=== PATIENT | male | born 1990 | race Caucasian/White ===

== ENCOUNTER 2018-03-03 16:50 | Inpatient (IN) ==
--- NOTE | 2018-03-03 18:59 | ED ---
HPI General Chief Complaint: Psychiatric Symptoms Stated Complaint: poss allergic reaction to a new medication Time Seen by Provider: 03/03/18 18:57 Source: patient Mode of arrival: ambulatory Limitations: no limitations History of Present Illness HPI Narrative: Patient is a 27-year-old male here today that was just discharged from [facility]. He states he was therefore suicidal ideation and management of his psychiatric medications, he is reports that they stopped his Geodon yesterday and switched him to Latuda which subsequently caused him some lesions on his tongue which are very painful. He still reports suicidal ideations with a plan to cut himself. He reports that he uses meth almost daily but has not used in several days due to being admitted to [facility]. He is somewhat agitated and moving around bed, but he is awake alert oriented. He denies homicidal ideation. Denies any chest pain shortness of breath, jaw pain, L arm pain etc. History positive for anxiety, depression, abscesses, methamphetamine abuse, schizophrenia. MD complaint: Reports suicidal ideation and feels depressed Onset (ago): week(s) Duration: constant History of same: Yes Relieving factors: none Exacerbating factors: drug use Context: Reports new medication(s) (Stopped Geodon, started Latuda) Associated psychiatric symptoms: Reports depression, suicidal ideation and racing thoughts; Denies homicidal ideation, auditory hallucinations, visual hallucinations and delusions Related Data Home Medications Medication Instructions Recorded Confirmed buspirone 15 mg PO TID 03/03/18 03/03/18 clonidine HCl 0.2 mg PO TID 03/03/18 03/03/18 hydroxyzine pamoate [Vistaril] 10 mg PO TID 03/03/18 03/03/18 lamotrigine [Lamictal] 20 mg PO DAILY 03/03/18 03/03/18 Allergies Allergy/AdvReac Type Severity Reaction Status Date / Time coconut Allergy Severe Vomiting Unverified 02/22/18 00:02 aspirin AdvReac Vomiting Verified 02/22/18 00:02 latex AdvReac Rash Verified 02/22/18 00:02 Review of Systems ROS: all other systems reviewed are negative [facility] Social History Social History Substance History: Active Abuse Second Hand Smoke Exposure: No Smoking Status: Never smoker Tobacco Type: Cigarettes How Often Do You Have a Drink Containing Alcohol: Never Recent Travel in [facility] within the Last 8 Weeks: No Recent Out of Country Travel within the Last 8 Weeks: No Exam Narrative Exam Narrative: GENERAL: Pt awake, alert, oriented.He is very anxious and moving around in bed. SKIN: Focused skin assessment warm/dry. HEAD: Atraumatic. Normocephalic. EYES: Pupils equal and round. No scleral icterus. No injection or drainage. ENT: No nasal bleeding or discharge. Mucous membranes pink and moist. NECK: Trachea midline. No JVD. CARDIOVASCULAR: Regular rate and rhythm. No murmur appreciated. RESPIRATORY: No accessory muscle use. Clear to auscultation. Breath sounds equal bilaterally. GASTROINTESTINAL: Abdomen soft, non-tender, nondistended. Hepatic and splenic margins not palpable. MUSCULOSKELETAL: No obvious deformities. No clubbing. No cyanosis. No edema. NEUROLOGICAL: Awake and alert. No obvious cranial nerve deficits. Motor grossly within normal limits. Normal speech. PSYCHIATRIC: Appropriate mood and affect; insight and judgment normal. Course Initial Documented Vital Signs Temperature 98.5 F 03/03/18 17:10 Pulse Rate 105 H 03/03/18 17:10 Respiratory Rate 16 03/03/18 17:10 Blood Pressure 141/93 H 03/03/18 17:10 Pulse Oximetry 91 L 03/03/18 17:10 Last Documented Vital Signs Temperature 98.5 F 03/03/18 17:10 Pulse Rate 74 03/04/18 05:00 Respiratory Rate 16 03/04/18 05:00 Blood Pressure 141/93 H 03/03/18 17:10 Pulse Oximetry 95 03/04/18 05:00 Medical Decision Making [facility] Narrative Medical decision making narrative: Medical decision making narrative: During the course of the patients emergency department visit, the patients history, examination, and differential diagnosis were reviewed with the patient. He reports that he was at [facility] for medication adjustment to his psych meds developed blisters to his tongue possibly caused by Latuda. He asked to be transferred here for evaluation for the blisters on his tongue however they discharged him. He is reporting suicidal ideation with a plan to cut himself he denies homicidal ideation. The patient was initially provided Ativan IV x 2 doses, psych eval, routine labwork with uds. The patients laboratory studies were reviewed and remarkable for Mild elevations of WBC's. The rest were significantly delayed due to need for recollection. Signed patient out to Dr. Howell at 2250. Patient has hypokalemia and hypocalcemia. Potassium and calcium replaced. 12: 49 AM. Patient is medically clear for psychiatric evaluation and disposition. Medical Screen Exam Complete: Yes Emergency Medical Condition: Yes Medical Screen Exam Complete: Yes Emergency Medical Condition: Yes Differential Diagnosis Differential Diagnosis: Suicidal ideation, schizophrenia, drug reaction (latuda ) Lab Data Lab results reviewed: Yes I reviewed the patient's lab results. Result diagrams: 03/03/18 19:20 03/04/18 06:20 Lab Results 03/03/18 03/03/18 03/04/18 Range/Units 19:20 22:35 06:00 WBC 11.2 H (4.0-11.0) th/mm3 RBC 4.87 (4.50-5.90) mil/mm3 Hgb 13.8 (13.0-17.0) gm/dL Hct 42.5 (39.0-51.0) % MCV 87.2 (80.0-100.0) fL MCH 28.4 (27.0-34.0) pg MCHC 32.6 (32.0-36.0) % RDW 13.6 (11.6-17.2) % Plt Count 250 (150-450) th/mm3 MPV 8.2 (7.0-11.0) fL Neut % (Auto) 66.3 (16.0-70.0) % Lymph % (Auto) 24.6 (9.0-44.0) % [place] % (Auto) 8.1 H (0.0-8.0) % Eos % (Auto) 0.8 (0.0-4.0) % Baso % (Auto) 0.2 (0.0-2.0) % Neut # (Auto) 7.4 (1.8-7.7) th/mm3 Lymph # (Auto) 2.8 (1.0-4.8) th/mm3 [place] # (Auto) 0.9 (0.0-0.9) th/mm3 Eos # (Auto) 0.1 (0.0-0.4) th/mm3 Baso # (Auto) 0.0 (0.0-0.2) th/mm3 WBC Differential . Differential Comment Auto diff final Sodium 142 (136-145) meq/L Potassium 2.9 L* (3.5-5.1) meq/L Chloride 114 H (98-107) meq/L Carbon Dioxide 23.7 (21.0-32.0) meq/L Anion Gap 4 L (5-15) meq/L BUN 11 (7-18) mg/dL Creatinine 0.65 (0.60-1.30) mg/dL Estimated GFR Greater than 89 (>89) mL/min Random Glucose 84 (74-106) mg/dL Calcium 6.2 L* (8.5-10.1) mg/dL Prot Corrected Calcium 5.9 L* (8.5-10.1) mg/dL Magnesium 1.7 (1.5-2.5) mg/dL Total Bilirubin 0.6 (0.2-1.0) mg/dL AST 22 (15-37) U/L ALT 24 (12-78) U/L Alkaline Phosphatase 37 L (45-117) U/L Total Protein 8.1 (6.4-8.2) g/dL Albumin 2.7 L (3.4-5.0) g/dL TSH 1.040 (0.358-3.740) uIU/mL Urine Color (Yellw/Straw) Urine Clarity (Clear) Urine pH (5.0-8.5) Ur Specific [place] (1.002-1.035) Urine Protein (Neg-Trace) mg/dL Urine Glucose (UA) (Negative) mg/dL Urine Ketones (Negative) mg/dL Urine Occult Blood (Negative) Urine Nitrate (Negative) Urine Bilirubin (Negative) Urine Urobilinogen (Less than 2) mg/dL Ur Leukocyte Esterase (Negative) Urine RBC (0-3) /hpf Urine Bacteria (None) /hpf Urine Mucus (Occasional) /lpf Micro UA Comment Ur Microscopic Review Urine Culture Comments Urine Opiates Screen Neg (Neg) Ur Barbiturates Screen Neg (Neg) Ur Amphetamines Screen Pos H (Neg) U Benzodiazepines Scrn Neg (Neg) Urine Cocaine Screen Neg (Neg) U Cannabinoids Screen Pos H (Neg) Serum Alcohol Less than 3 (0-5) mg/dL 03/04/18 03/04/18 Range/Units 06:00 06:20 WBC (4.0-11.0) th/mm3 RBC (4.50-5.90) mil/mm3 Hgb (13.0-17.0) gm/dL Hct (39.0-51.0) % MCV (80.0-100.0) fL MCH (27.0-34.0) pg MCHC (32.0-36.0) % RDW (11.6-17.2) % Plt Count (150-450) th/mm3 MPV (7.0-11.0) fL Neut % (Auto) (16.0-70.0) % Lymph % (Auto) (9.0-44.0) % [place] % (Auto) (0.0-8.0) % Eos % (Auto) (0.0-4.0) % Baso % (Auto) (0.0-2.0) % Neut # (Auto) (1.8-7.7) th/mm3 Lymph # (Auto) (1.0-4.8) th/mm3 [place] # (Auto) (0.0-0.9) th/mm3 Eos # (Auto) (0.0-0.4) th/mm3 Baso # (Auto) (0.0-0.2) th/mm3 WBC Differential Differential Comment Sodium 137 (136-145) meq/L Potassium 4.1 D (3.5-5.1) meq/L Chloride 107 (98-107) meq/L Carbon Dioxide 25.8 (21.0-32.0) meq/L Anion Gap 4 L (5-15) meq/L BUN 12 (7-18) mg/dL Creatinine 0.96 (0.60-1.30) mg/dL Estimated GFR Greater than 89 (>89) mL/min Random Glucose 87 (74-106) mg/dL Calcium 8.3 L D (8.5-10.1) mg/dL Prot Corrected Calcium (8.5-10.1) mg/dL Magnesium (1.5-2.5) mg/dL Total Bilirubin (0.2-1.0) mg/dL AST (15-37) U/L ALT (12-78) U/L Alkaline Phosphatase (45-117) U/L Total Protein (6.4-8.2) g/dL Albumin (3.4-5.0) g/dL TSH (0.358-3.740) uIU/mL Urine Color Yellow (Yellw/Straw) Urine Clarity Clear (Clear) Urine pH 5.0 (5.0-8.5) Ur Specific [place] 1.029 (1.002-1.035) Urine Protein 30 H (Neg-Trace) mg/dL Urine Glucose (UA) Negative (Negative) mg/dL Urine Ketones Negative (Negative) mg/dL Urine Occult Blood Negative (Negative) Urine Nitrate Negative (Negative) Urine Bilirubin Negative (Negative) Urine Urobilinogen Less than 2 (Less than 2) mg/dL Ur Leukocyte Esterase Negative (Negative) Urine RBC Less than 1 (0-3) /hpf Urine Bacteria Rare H (None) /hpf Urine Mucus Few H (Occasional) /lpf Micro UA Comment Culture not ind Ur Microscopic Review Not Reportable Urine Culture Comments Culture not ind Urine Opiates Screen (Neg) Ur Barbiturates Screen (Neg) Ur Amphetamines Screen (Neg) U Benzodiazepines Scrn (Neg) Urine Cocaine Screen (Neg) U Cannabinoids Screen (Neg) Serum Alcohol (0-5) mg/dL Discharge Plan Discharge Disposition Patient Disposition: 30 Still Patient Discharge Details Diagnosis: Suicidal ideation, Acute hypokalemia, Hypocalcemia Physicians Team ED Provider: Juvenal Howell ED Midlevel Provider: Trisha Fox Primary Care Provider: Primary Care Kera Yanez Rxs /Orders / Referrals /Forms Prescriptions: No Action lamotrigine [Lamictal] 25 mg Tablet 20 mg PO DAILY RF: 0 clonidine HCl 0.2 mg Tablet 0.2 mg PO TID RF: 0 buspirone 15 mg Tablet 15 mg PO TID RF: 0 hydroxyzine pamoate [Vistaril] 25 mg Capsule 10 mg PO TID RF: 0 Status ED Status: Medically Cleared
[2018-03-03] MEDS ORDERED: Acetaminophen 500 MG Tablet PO ONE (19:50)
[2018-03-03 20:02] LABS: Baso % (Auto) 0.2 % (0.0-2.0); Eos # (Auto) 0.1 th/mm3 (0.0-0.4); Eos % (Auto) 0.8 % (0.0-4.0); Hematocrit 42.5 % (39.0-51.0); Hemoglobin 13.8 gm/dL (13.0-17.0); Lymph # (Auto) 2.8 th/mm3 (1.0-4.8); Lymph % (Auto) 24.6 % (9.0-44.0); Mean Corpuscular HGB Conc 32.6 % (32.0-36.0); Mean Corpuscular Hemoglobin 28.4 pg (27.0-34.0); Mean Corpuscular Volume 87.2 fL (80.0-100.0); Mean Platelet Volume 8.2 fL (7.0-11.0); Mono # (Auto) 0.9 th/mm3 (0.0-0.9); Mono % (Auto) 8.1 % (0.0-8.0); Neut # (Auto) 7.4 th/mm3 (1.8-7.7); Neut % (Auto) 66.3 % (16.0-70.0); Platelet Count 250 th/mm3 (150-450); Red Blood Count 4.87 mil/mm3 (4.50-5.90); Red Cell Distribution Width 13.6 % (11.6-17.2); White Blood Count 11.2 th/mm3 (4.0-11.0)
[2018-03-03 20:33] LABS: Alkaline Phosphatase 37 U/L (45-117); Total Protein 8.1 g/dL (6.4-8.2)
[2018-03-03 23:13] LABS: Alanine Aminotransferase 24 U/L (12-78); Albumin 2.7 g/dL (3.4-5.0); Anion Gap 4 meq/L (5-15); Aspartate Aminotransferase 22 U/L (15-37); Blood Urea Nitrogen 11 mg/dL (7-18); Calcium 6.2 mg/dL (8.5-10.1); Carbon Dioxide 23.7 meq/L (21.0-32.0); Chloride 114 meq/L (98-107); Glomerular Filtration Rate Greater Than 89 mL/min (>89); Glucose,Random 84 mg/dL (74-106); Magnesium 1.7 mg/dL (1.5-2.5); Sodium 142 meq/L (136-145)
[2018-03-03 23:22] LABS: Potassium 2.9 meq/L (3.5-5.1)
[2018-03-03] MEDS ORDERED: Calcium Gluconate Inj 1 GM in Dextrose 5% in Water Inj 100 ML IV.SIG ONE ×2 (23:54)
[2018-03-03] MEDS ORDERED: Potassium Chlor 20 mEq Premix 20 MEQ/100 ML PIGGYBACK IV.SIG ONE (23:54)
[2018-03-04 06:23] LABS: Bacteria,Urine Rare /hpf; Bilirubin,Urine Negative (Negative); Clarity,Urine Clear (Clear); Color,Urine Yellow (Yellw/Straw); Glucose,Urine (UA) Negative (Negative); Leukocyte Esterase,Urine Negative (Negative); Mucus,Urine Few /lpf (Occasional); Nitrite,Urine Negative (Negative); Specific Gravity,Urine 1.029 (1.002-1.035)
[2018-03-04 06:27] LABS: Amphetamine Screen,Urine Pos (Neg); Barbiturate Screen,Urine Neg (Neg); Cannabinoid Screen,Urine Pos (Neg); Cocaine Screen,Urine Neg (Neg)
[2018-03-04 06:28] LABS: Opiate Screen,Urine Neg (Neg)
[2018-03-04 07:14] LABS: Anion Gap 4 meq/L (5-15); Blood Urea Nitrogen 12 mg/dL (7-18); Calcium 8.3 mg/dL (8.5-10.1); Carbon Dioxide 25.8 meq/L (21.0-32.0); Chloride 107 meq/L (98-107); Glomerular Filtration Rate Greater Than 89 mL/min (>89); Glucose,Random 87 mg/dL (74-106); Potassium 4.1 meq/L (3.5-5.1); Sodium 137 meq/L (136-145)
[2018-03-04] MEDS ORDERED: Aluminum/Magnesium/Simethacone Susp 30 ML UDC PO PRN (12:02)
[2018-03-04] MEDS ORDERED: Acetaminophen 325 MG Tablet PO PRN (12:02)
[2018-03-04] MEDS ORDERED: lamoTRIgine 25 MG TABLET PO SCH ×2 (12:30→13:07)
[2018-03-04] MEDS ORDERED: BUSPIRONE 15 MG PO SCH (13:00)
--- NOTE | 2018-03-04 13:26 | P.CONPSY ---
Provisional Diagnosis Admission Date: March 04, 2018 12:08 [place] I.: Bipolar disorder-current episode depressed with suicidal ideation History of Present Illness Primary Care Provider: No Primary Care Physician History of Present Illness: This is a 27 year-old single, male who presented voluntarily for suicidal ideation after being discharged from [facility] yesterday. He is known to this facility and department. Reviewed electronic medical record, labs, and discussed case with staff. Patient was evaluated in his room in [facility]. His speech is clear, logical, organized, of normal canes and volume. He endorses suicidal ideation and states that he would "slit my wrists, take all my medications, and drink a whole bottle of whiskey". He denies homicidal ideation. Although when asked about the auditory hallucinations he states "I do not know, sometimes I think I might hear pseudo-auditory hallucinations". When asked to elaborate he states that sometimes he hears conversations at some far away and then he believes they are talking about him. He does not appear to be exhibiting any psychotic or manic symptoms at this time. He reports that he was discharged yesterday from [facility] after being admitted since Sunday. He reports that he follows up with them on a regular basis. He states he was originally admitted that he wanted to go off of his Geodon due to to gaining weight. He states that they started him on Latuda however it caused blisters on his tongue and he stopped. He claims that he told the nurses at [facility] this and that he also told them he was still suicidal but they discharged him anyway. The patient initially Saying Abilify however, he had samples of Latuda and his belongings and when I took them to him he did corroborate this was the medication was given. Patient reports that he has had previous suicidal attempt stating that it the age of 12 he "slit my wrists". He reports that he lives with his mother and is currently unemployed. States that he completed 2 years of college. Denies owning firearms. Denies a familial history of mental illness. He actually states "nothing that has been diagnosed but if you met him you could tell it was there". He is reporting that he like to get back on his Geodon is that is what has worked previously for him. Review of Systems All other systems reviewed negative except as stated in HPI PMF - History History Provided By: Patient - Medical History Medical History: Medical History (Last Reviewed 02/22/18 @ 00:03 by Lesvia Vasquez) Patient denies medical problems - Surgical History Surgical History: Surgical History (Last Reviewed 02/22/18 @ 00:42 by CHRISTEN Mckeon) Hx of cholecystectomy - Tobacco History Second Hand Smoke Exposure: No Smoking Status: Never smoker Tobacco Type: Cigarettes - Alcohol History How Often Do You Have a Drink Containing Alcohol: Never - Substance Use History Substance History: Active Abuse - Substance Use Type Methamphetamine Status: Active Route Used: Inhalation Alcohol Status: Active - Travel History Recent Travel in the [facility] Within the Last 8 Weeks: No Recent Travel Out of the Country Within the Last 8 Weeks: No - Immunization History Tetanus Immunization: >5 Years Medications and Allergies Active Medications: Active Medications Acetaminophen (Tylenol) 650 mg PO Q4H PRN PRN Reason: Pain 1-5 or Temp >101F Al Hydrox/Mg Hydrox/Simethicone (Mag-Al Plus Susp Liq) 30 ml PO Q6H PRN PRN Reason: DYSPEPSIA Clonidine HCl (Catapres) 0.2 mg PO TID [facility] Last Admin: 03/04/18 13:19 Dose: 0.2 mg Hydroxyzine Pamoate (Vistaril) 100 mg PO TID [facility] Last Admin: 03/04/18 13:19 Dose: 100 mg Lamotrigine (Lamictal) 25 mg PO DAILY [facility] Lamotrigine (Lamictal) 25 mg PO ONCE ONE Stop: 03/04/18 14:31 Lidocaine HCl (Xylocaine 2% Viscous) 15 ml SWISH-SPIT Q4H PRN PRN Reason: PAIN SCALE 4 TO 6 MODERATE Last Admin: 03/03/18 20:25 Dose: 15 ml Non-Formulary Medication (Buspirone [Buspirone]) 15 mg PO TID [facility] Senna/Docusate Sodium (Vicky-Colace) 1 tab PO BID [facility] Sennosides (Senokot) 17.2 mg PO Q12H PRN PRN Reason: Moderate Constipation Ziprasidone (Geodon) 160 mg PO [facility] Allergies Allergy/AdvReac Type Severity Reaction Status Date / Time coconut Allergy Severe Vomiting Unverified 03/04/18 12:56 aspirin AdvReac Vomiting Verified 03/04/18 12:56 latex AdvReac Rash Verified 03/04/18 12:56 Home Medications Medication Instructions Recorded Confirmed Type buspirone 15 mg PO TID 03/03/18 03/03/18 History clonidine HCl 0.2 mg PO TID 03/03/18 03/03/18 History hydroxyzine pamoate [Vistaril] 10 mg PO TID 03/03/18 03/03/18 History lamotrigine [Lamictal] 20 mg PO DAILY 03/03/18 03/03/18 History Exam Vital signs: Vital Signs 03/03/18 17:10 03/03/18 23:00 03/04/18 05:00 Temperature 98.5 F Pulse Rate 105 H 91 H 74 Respiratory Rate 16 16 16 Blood Pressure 141/93 H Pulse Oximetry 91 L 96 95 Intake & Output 03/03/18 03/04/18 03/04/18 18:59 06:59 18:59 Intake Total 210 / 210 Balance 210 / 210 Weight 198 lb Intake: IV 210 / 210 Calcium Gluconate Inj 1 GM In 110 / 110 D5W Inj 100 ML @ 110 mls/hr IV. SIG ONCE ONE Rx#:[id number] KCl 20 mEq Premix Inj 20 meq In 100 / 100 100 ml @ 50 mls/hr IV.SIG ONCE ONE Rx#:[id number] - Constitutional no acute distress - Routine HEENT Exam Head: Present: normocephalic, atraumatic - Routine Neurological Exam Present: alert, oriented X3 - Routine Psychiatric Exam Present: suicidal ideation, cooperative, depressed Mental Status Examination Appearance: Appropriate Consciousness: Alert Orientation: x4 Motor Activity: Normal gait Speech: Unremarkable Language: Adequate Fund of Knowledge: Adequate Attention and Concentration: Adequate Memory: Unremarkable Mood: Sad Affect: Sad Thought Process & Associations: Intact, Logical Thought Content: Appropriate Hallucination Type: None Delusion Type: None Suicidal Ideation: No Suicidal Plan: No Suicidal Intention: No Homicidal Ideation: No Homicidal Plan: No Homicidal Intention: No Insight: Fair Judgment: Impulsive Assessment and Plan - Assessment (1) Bipolar disorder current episode depressed Code(s): F31.30 - Bipolar disorder, current episode depressed, mild or moderate severity, unspecified Status: Acute - Plan Plan: Estimated LOS: [7] days patient has been admitted to a locked inpatient psychiatric unit for further evaluation and treatment as deemed necessary. Justification for Continued Inpatient Stay: Moving this patient to a less restrictive environment would likely result in decompensation.
[2018-03-04] MEDS ORDERED: lamoTRIgine 25 MG TABLET PO ONE (14:30)
[2018-03-04] MEDS: Senna/Docusate Sodium 8.6/50 MG Tablet PO SCH (23:45)
[2018-03-05 08:26] LABS: Calcium 8.6 mg/dL (8.5-10.1); Carbon Dioxide 27.6 meq/L (21.0-32.0); Potassium 3.8 meq/L (3.5-5.1)
[2018-03-05 08:30] LABS: Chol/HDL Ratio 5.12 Ratio; HDL Cholesterol 28.1 mg/dL (40.0-60.0)
[2018-03-05] MEDS: Senna/Docusate Sodium 8.6/50 MG Tablet PO SCH ×2 (08:38→21:03)
[2018-03-05 10:54] LABS: Hemoglobin A1c 5.4 % (4.3-6.0)
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
--- NOTE | 2018-03-05 15:28 | ECG ---
Date Performed: 03/05/2018 Time Performed: 10:38:48 PTAGE: 27 years EKG: SINUS BRADYCARDIA BORDERLINE ECG PREVIOUS TRACING : 06/18/2002 03.18 Since the previous tracing, no significant change noted DOCTOR: Mecca Napoles Interpretating Date/Time 03/05/2018 15:26:29
[2018-03-05] MEDS ORDERED: lamoTRIgine 100 MG Tablet PO SCH (21:00)
[2018-03-06] MEDS: Senna/Docusate Sodium 8.6/50 MG Tablet PO SCH (09:21)
--- NOTE | 2018-03-06 11:24 | P.TTN ---
- Patient Problems Problems: 1. Discharge planning 2. Medication compliance 3. Knowledge deficit 4. Lack of coping skills - Progress Toward Goals Provider Present: Dr. Sue Feliciano Provider Input: 03/06/18: Pt is new, pending consult from MD, update will be provided at a later time. Nurse Input: 03/06/18 GABO Wagner reports pt secluding and isolative, medication compliant, sleeping well and no current behavioral issues. Psychiatric Counselors Present: Other Psychiatric Therapist Input: 03/06/18: Initial required documentation to be completed today. Pt verbalized to RN he wants to go to [facility] for Rehab. Counselor will look further into this information. Group Spec/RT/OT/GARRISON Present: BLADIMIR Shell Occupational Therapist Input: 03/06/18: Pt is new; group attendance will be assessed after today. - Documentation Teaching Recipient: Patient
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
== END 2018-03-06 16:20 | disposition home or self-care (01) ==
LOC: NEPD 16:50 → NEDA 03-04 12:08 → H260 03-04 15:05
PROVIDERS: ADMIT Psychiatry & Neurology Psychiatry; ATTEND Psychiatry & Neurology Psychiatry